=== PATIENT | female | born 1995 | race Caucasian/White ===

== ENCOUNTER 2017-03-01 08:14 | Emergency (ER) | payer OTHER ==
[2017-03-01 08:38] VITALS: BP 161/89
--- NOTE | 2017-03-01 09:27 | ER Document Report ---
HPI - HPI Pain Level: 3 Notes: Patient is a 21-year-old female who presents the ED complaining of left upper back pain 1 day. Patient states that she began feeling sore last evening and woke up in the pain has been constant and worsened when she moves her left upper extremity. Pain is described as an ache and occasional sharp pain. Patient states that she has been walking a dog over the last several days using both arms, but the dog primarily 'walks her.' The pain does not radiate. She denies any immunocompromised health condition. She denies any smoking or IV drug use. Denies any procedures into her back or neck. Patient states that she is still ambulating without any difficulties. She has not had any recent illness, travel, or sick contacts. Denies any headache, fever, head injury, neck stiffness, URI, sore throat, chest pain, palpitations, syncope, cough, shortness of breath, wheeze, dyspnea, abdominal pain, nausea/vomiting/diarrhea, urinary retention, dysuria, hematuria, loss of control of bowel or bladder, numbness/tingling, saddle anesthesia, muscle paralysis/weakness, or rash. Patient states that she is primarily here to get a work note. - ROS Notes: REVIEW OF SYSTEMS: CONSTITUTIONAL : Denies fever, chills, or sweats. Denies recent illness. EENT: Denies eye, ear, throat, or mouth pain or symptoms. Denies nasal or sinus congestion or discharge. Denies throat, tongue, or mouth swelling or difficulty swallowing. CARDIOVASCULAR: Denies chest pain. Denies palpitations or racing or irregular heart beat. Denies ankle edema. RESPIRATORY: Denies cough, cold, or chest congestion. Denies shortness of breath, difficulty breathing, or wheezing. GASTROINTESTINAL: Denies abdominal pain or distention. Denies nausea, vomiting , or diarrhea. Denies blood in vomitus, stools, or per rectum. Denies black, tarry stools. Denies constipation. GENITOURINARY: Denies difficulty urinating, painful urination, burning, frequency, blood in urine, or discharge. MUSCULOSKELETAL: see hpi SKIN: Denies rash, lesions or sores. NEUROLOGICAL: Denies confusion or altered mental status. Denies passing out or loss of consciousness. Denies dizziness or lightheadedness. Denies headache. Denies weakness or paralysis or loss of use of either side. Denies problems with gait or speech. Denies sensory loss, numbness, or tingling. ALL OTHER SYSTEMS REVIEWED AND NEGATIVE. 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 HEAD: Atraumatic, normocephalic. EYES: Pupils equal round and reactive to light, extraocular movements intact, sclera anicteric, conjunctiva are normal. ENT: oropharynx clear without exudates. No tonsilar hypertrophy or erythema. Moist mucous membranes. NECK: Normal range of motion, supple without lymphadenopathy. No rigidity/ meningismus. LUNGS: Breath sounds clear to auscultation bilaterally and equal. No wheezes rales or rhonchi. HEART: Regular rate and rhythm without murmurs, rubs, gallops. ABDOMEN: Soft, nontender, nondistended abdomen. No guarding, no rebound. No masses appreciated. Normal bowel sounds present. No CVA tenderness bilaterally. No pulsatile mass Musculoskeletal: Ext b/l: FROM to passive/active. Strength 5+/5. No focal deficits. N/V intact. Back: FROM to passive/active. Strength 5+/5. SLR neg b/l. No erythema, warmth , swelling, deformity, or ecchymosis noted. No vertebral point tenderness to percussion/palp. + mild spasming to the left rhomboid area with + mild tenderness to the area. Extremities: No cyanosis, clubbing, or edema b/l. Peripheral pulses 2+. Capillary refill less than 3 seconds. NEUROLOGICAL: Cranial nerves grossly intact. Normal speech, normal gait. Normal sensory, motor exams PSYCH: Normal mood, normal affect. SKIN: Warm, Dry, normal turgor, no rashes or lesions noted. - INFECTION CONTROL TRAVEL OUTSIDE OF THE [place] IN LAST 30 DAYS: No - RESPIRATORY O2 Sat by Pulse Oximetry: 98 Course - Re-evaluation Re-evalutation: 03/01/17 09:26 Patient is an afebrile, well-hydrated, 21-year-old female who presents to the ED with thoracic back pain, suspect strain and muscle spasming. Vitals are stable. PE otherwise unremarkable for any focal neurological deficits. Low suspicion for any meningitis, fracture, expanding/ruptured AAA, cauda equina syndrome, epidural mass lesion/abscess, herniated disc causing severe spinal stenosis, or other systemic infection at this time. Patient is aware that her condition can change from initial presentation and that she needs monitor symptoms closely for any acute changes. I will send her home with a prescription for naproxen and baclofen. Conservative measures otherwise for symptoms. Recheck with your PCM in 2-3 days. Return to the ED with any worsening/concerning symptoms otherwise as reviewed in discharge. Consider consult with orthopedics/physical therapy. Patient is in agreement. Work note provided. - Vital Signs Vital signs: Temp Pulse Resp BP Pulse Ox 98.4 F 87 16 161/89 H 98 03/01/17 08:36 03/01/17 08:36 03/01/17 08:36 03/01/17 08:36 03/01/17 08:36 Discharge - Discharge Clinical Impression: Upper back strain Qualifiers: Encounter type: initial encounter Qualified Code(s): S29.012A - Strain of muscle and tendon of back wall of thorax, initial encounter Condition: Stable Disposition: HOME, SELF-CARE Instructions: Upper Back Strain ([facility]), Stretching Exercises for the Back ([facility]) , Muscle Relaxers ([facility]), Ice Massage ([facility]), Ice Packs ([facility]), Warm Packs ([facility]) Additional Instructions: Monitor for any acute changes in your symptoms Take medication as directed Conservative measures as reviewed Consider consult with orthopedics/physical therapy Recheck with your PCM this week Return to the ED with any worsening symptoms and/or development of fever, headache, neck stiffness, chest pain, palpitations, syncope, shortness of breath , trouble breathing, abdominal pain, n/v/d, blood in stool/urine, loss of control of bowel/bladder, urinary retention, muscle weakness/paralysis, saddle anesthesia, numbness/tingling, or other worsening symptoms that are concerning to you. Prescriptions: Baclofen [Baclofen 10 mg Tablet] 5 mg PO BID PRN #10 tablet PRN Reason: Naproxen 500 mg PO BID PRN #30 tablet PRN Reason: Forms: Elevated Blood Pressure, Return to Work Referrals: [facility] ([facility] [Provider Group] - Follow up as needed
== END 2017-03-01 09:53 | disposition home or self-care (01) ==
LOC: ER 08:14
DX: S29.012A Strain of muscle and tendon of back wall of thorax, initial encounter (principal); M79.1 Myalgia; X50.9XXA Other and unspecified overexertion or strenuous movements or postures, initial encounter; Y93.K1 Activity, walking an animal
CPT/HCPCS: 99283

== ENCOUNTER 2017-05-21 20:02 | Emergency (ER) | payer OTHER ==
[2017-05-21 20:15] VITALS: BP 145/102
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
== END 2017-05-21 21:19 | disposition home or self-care (01) ==
LOC: ER 20:02
DX: Z04.1 Encounter for examination and observation following transport accident (principal); V49.40XA Driver injured in collision with unspecified motor vehicles in traffic accident, initial encounter; F41.9 Anxiety disorder, unspecified; E66.9 Obesity, unspecified; Z68.41 Body mass index [BMI] 40.0-44.9, adult; Z97.5 Presence of (intrauterine) contraceptive device
CPT/HCPCS: 99283